=== PATIENT | female | born 1945 | race Caucasian/White ===

== ENCOUNTER 2018-06-24 11:22 | Emergency (ER) | payer MEDICARE ==
[~2018-06-24] VITALS: Ht 177.8 cm; Wt 104.3 kg
--- OUTSIDE RECORDS SUMMARY | ~2018-06-24 | XMS | Clinical Summary ---
Demographics + + + | Address | [address] | | | [place] [address] | + + + | Home Phone | | + + + | Preferred Language | Unknown | + + + | Marital Status | | + + + | Rastafarian Affiliation | [id number] | + + + | Race | Unknown | + + + | Ethnic Group | Unknown | + + + Author + + + | Author | [facility] | | | and [place] | + + + | Organization | [facility] | | | and [place] | + + + | Address | Unknown | + + + | Phone | Unavailable | + + + Support + + + + + | Name | Relationship | Address | Phone | + + + + + | None,Per Patient | ECON | [phone] | | | | | NA, | | + + + + + | Cesar Tabor | ECON | NA | Unavailable | | | | NA, | | + + + + + Care Team Providers + +------+ + | Care Dress Fitter Name | Role | Phone | + +------+ + PP | Unavailable | + +------+ + Allergies + + + + + + | Active Allergy | Reactions | Severity | Noted | Comments | | | | | Date | | + + + + + + | Sulfa Antibiotics | Anaphylaxis | High | 04/15/20 | | | | | | 14 | | + + + + + + Current Medications + + +-------+---------+------+------+-------+ | Prescription | Sig. | Disp. | Refills | Star | End | Statu | | | | | | t | Date | s | | | | | | Date | | | + + +-------+---------+------+------+-------+ | losartan (COZAAR) | Take 50 mg by mouth | | | 05/ | | Activ | | 50 mg tablet | Daily. | | | 04/02 | | e | | | | | | 14 | | | + + +-------+---------+------+------+-------+ | fluticasone | 1 spray by Nasal | | | | | Activ | | (FLONASE) 50 | route nightly. | | | | | e | | mcg/nasal spray | | | | | | | + + +-------+---------+------+------+-------+ | Multiple | Take by mouth | | | | | Activ | | Vitamins-Minerals | Daily. | | | | | e | | (MULTIVITAMIN PO) | | | | | | | + + +-------+---------+------+------+-------+ | FISH OIL | Take by mouth. | | | | | Activ | | | | | | | | e | + + +-------+---------+------+------+-------+ | CALCIUM-VITAMIN D | Take by mouth. | | | | | Activ | | PO | | | | | | e | + + +-------+---------+------+------+-------+ | Albuterol Sulfate | Inhale 2 puffs into | | | | | Activ | | (PROAIR HFA IN) | the lungs EVERY 4 TO | | | | | e | | | 6 HOURS NEEDED. | | | | | | + + +-------+---------+------+------+-------+ Active Problems Not on file Social History + +-------+ +--------+------+ | Tobacco Use | Types | Packs/Day | Years | Date | | | | | Used | | + +-------+ +--------+------+ | Never Assessed | | | | | + +-------+ +--------+------+ + + + | Sex Assigned at | Date Recorded | | | | + + + | Not on file | | + + + Last Filed Vital Signs + + + + | Vital Sign | Reading | Time Taken | + + + + | Blood Pressure | 132/68 | 03/28/2014922 PDT | + + + + | Pulse | 80 | 03/28/2014922 PDT | + + + + | Temperature | 36.5 C (97.7 F) | 03/28/2014922 PDT | + + + + | Respiratory Rate | 18 | 03/28/2014922 PDT | + + + + | Oxygen Saturation | - | - | + + + + | Inhaled Oxygen | - | - | | Concentration | | | + + + + | Weight | 109.4 kg (241 lb 2.9 | 03/28/2014922 PDT | | | oz) | | + + + + | Height | 176.3 cm (5' 9.41") | 03/28/2014922 PDT | + + + + | Body Mass Index | 35.2 | 03/28/2014922 PDT | + + + + Plan of Treatment + + + + + | Health Maintenance | Due Date | Last Done | Comments | + + + + + | Vaccine: | | | | | Dtap/Tdap/Td (1 - | 5 | | | | Tdap) | | | | + + + + + | Vaccine: | | | | | Pneumococcal 65+ | 1 | | | | Low/Medium Risk (1 | | | | | of 2 - PCV13) | | | | + + + + + | Vaccine: Influenza | | | | | (#1) | 8 | | | + + + + + Results Not on filefrom Last 3 Months
[2018-06-24] MEDS ORDERED: ADVIL LIQUI-GE200 MG PO (11:42)
[2018-06-24] MEDS ORDERED: MULTIPLE VITAM1 EAC1 PO (11:42)
[2018-06-24] MEDS ORDERED: BACLOFEN20 MG PO (11:43)
[2018-06-24] MEDS ORDERED: ASPIRIN81 MG PO (11:43)
[2018-06-24] MEDS ORDERED: LOSARTAN-HCTZ1 EAC1 PO (11:44)
[2018-06-24] MEDS ORDERED: CLARITIN10 M2 PO (11:44)
[2018-06-24] MEDS ORDERED: GLUCOPHAGE500 MG PO (11:44)
[2018-06-24] MEDS ORDERED: LIPITOR20 MG PO (11:45)
[2018-06-24] MEDS ORDERED: XANAX0.5 MG PO (12:49)
--- NOTE | 2018-06-24 19:48 | EKG ---
[facility] [address] [place] [address] Signed Normal sinus rhythm Normal ECG No previous ECGs available Confirmed by WIN HERNANDEZ MD ([id number]) on 06/24/2018 7:47:47 PM Electronically Signed By: WIN HERNANDEZ MD 06/24/18 [id number] PATIENT NAME: HIRAM OVALLE Electrocardiogram DATE OF : 47 PHYSICIAN: WIN HERNANDEZ MD REPORT #: [id number] REPORT IS CONFIDENTIAL AND NOT TO BE RELEASED WITHOUT AUTHORIZATION
== END 2018-06-24 13:21 | disposition home or self-care (01) ==
LOC: ED 11:22
DX: R07.9 Chest pain, unspecified (principal); F41.9 Anxiety disorder, unspecified; E11.9 Type 2 diabetes mellitus without complications; Z88.2 Allergy status to sulfonamides; Z91.018 Allergy to other foods; Z79.84 Long term (current) use of oral hypoglycemic drugs; Z79.899 Other long term (current) drug therapy; Z79.82 Long term (current) use of aspirin
CPT/HCPCS: 70450; 80053; 81001; 84484; 85025; 85610; 85730; 93005; 93010; 99284